=== PATIENT | male | born 1980 | race Caucasian/White ===

== ENCOUNTER 2017-05-30 14:32 | Emergency (ER) | payer BC ==
--- NOTE | 2017-05-30 15:02 | EDM.PDOC ---
ED HPI GENERAL MEDICAL PROBLEM - General Chief Complaint: Genitourinary Problem Stated Complaint: L TESTICAL PAIN Time Seen by Provider: 05/30/17 15:00 Source of Information: Reports: Patient - History of Present Illness INITIAL COMMENTS - FREE TEXT/NARRATIVE: HISTORY AND PHYSICAL: History of present illness: Patient presents with left testicular pain and swelling above the superior pole of the testicle tender on exam swelling of the epididymis no torsion appreciated on clinical exam the exam is somewhat limited due to discomfort but the testicle is not high riding. He denies new sexual partners or recent sexual intercourse denies injury or trauma No fever nausea vomiting chills sweats [] Review of systems: As per history of present illness and below otherwise all systems reviewed and negative. Past medical history: As per history of present illness and as reviewed below otherwise noncontributory. Surgical history: As per history of present illness and as reviewed below otherwise noncontributory. Social history: No reported history of drug or alcohol abuse. Family history: As per history of present illness and as reviewed below otherwise noncontributory. Physical exam: HEENT: Atraumatic, normocephalic, pupils reactive, negative for conjunctival pallor or scleral icterus, mucous membranes moist, throat clear, neck supple, nontender, trachea midline. Lungs: Clear to auscultation, breath sounds equal bilaterally, chest nontender. Heart: S1S2, regular, negative for clicks, rubs, or JVD. Abdomen: Soft, nondistended, nontender. Negative for masses or hepatosplenomegaly. Negative for costovertebral tenderness. Pelvis: Stable nontender. Genitourinary: Swelling of left epididymis and superior pole of left testicle with significant tenderness testicles not high riding no mass scar or lesion of the testicle is appreciated right testicle within normal limits is low with penis no exudate at the meatus otherwise no mass scarred lesion appreciated Rectal: Deferred. Extremities: Atraumatic, negative for cords or calf pain. Neurovascular unremarkable. Neuro: Awake, alert, oriented. Cranial nerves II through XII unremarkable. Cerebellum unremarkable. Motor and sensory unremarkable throughout. Exam nonfocal. Diagnostics: [UA with culture GC Chlamydia Ultrasound scrotum and contents ] Therapeutics: [Rocephin 250 mg IM Azithromycin 1 g by mouth now Cultures to follow Bactrim double strength by mouth twice a day #20 no refill Follow-up with urology in 2 weeks] Impression: [Left epididymitis] Cyst left epididymis noted on ultrasound Definitive disposition and diagnosis as appropriate pending reevaluation and review of above. testicle Pain Score (Numeric/FACES): 4 - Related Data Allergies Allergy/AdvReac Type Severity Reaction Status Date / Time No Known Allergies Allergy Verified 05/30/17 15:11 Home Meds: Home Meds . [No Known Home Meds] 05/30/17 [History] ED ROS GENERAL - Review of Systems Review Of Systems: ROS reveals no pertinent complaints other than HPI. ED EXAM, GENERAL - Physical Exam Exam: See Below Course - Vital Signs Last Recorded V/S: Last Vital Signs Temp 98.9 F 05/30/17 15:01 Pulse 103 H 05/30/17 15:01 Resp 20 05/30/17 15:01 BP 120/78 05/30/17 15:01 Pulse Ox 98 05/30/17 15:01 - Orders/Labs/Meds Orders: Active Orders 24 hr Category Date Time Status CHLAMYDIA AND GONORRHEA BY TMA Stat Lab 05/30/17 15:02 Received CULTURE URINE [RM] Stat Lab 05/30/17 15:02 Received Labs: Laboratory Tests 05/30/17 Range/Units 15:02 Urine Color YELLOW Urine Appearance CLEAR Urine pH 5.5 (5.0-8.0) Ur Specific [place] 1.025 (1.001-1.035) Urine Protein NEGATIVE (NEGATIVE) mg/dL Urine Glucose (UA) NEGATIVE (NEGATIVE) mg/dL Urine Ketones NEGATIVE (NEGATIVE) mg/dL Urine Occult Blood NEGATIVE (NEGATIVE) Urine Nitrite NEGATIVE (NEGATIVE) Urine Bilirubin NEGATIVE (NEGATIVE) Urine Urobilinogen 0.2 (<2.0) EU/dL Ur Leukocyte Esterase TRACE (NEGATIVE) Urine RBC NONE SEEN (0-2/HPF) Urine WBC 2-4 (0-5/HPF) Ur Epithelial Cells RARE (NONE-FEW) Urine Bacteria FEW (NEGATIVE) Urine Mucus LIGHT (NONE-MOD) Meds: Medications Discontinued Medications Generic Name Dose Route Start Last Admin Trade Name Freq PRN Reason Stop Dose Admin Azithromycin 1,000 mg 05/30/17 15:44 05/30/17 16:28 Zithromax PO 05/30/17 15:45 1,000 mg NOW STA Administration Ceftriaxone Sodium 250 mg/ 1 mls @ 1 mls/sec 05/30/17 15:44 05/30/17 16:26 Lidocaine HCl IM 05/30/17 15:45 1 mls/sec ONETIME ONE Administration Departure - Departure Time of Disposition: 16:48 Disposition: Home, Self-Care 01 Condition: Good Clinical Impression: Epididymitis, Epididymal cyst - Discharge Information Referrals: PCP,None [Primary Care Provider] - Forms: ED Department Discharge Additional Instructions: Medication as prescribed Return if symptoms persist or worsen Follow-up with urology in 2 weeks sooner as needed [facility] [address], [address] [place] [address] The following information is given to patients seen in the emergency department who are being discharged to home. This information is to outline your options for follow-up care. We provide all patients seen in our emergency department with a follow-up referral. The need for follow-up, as well as the timing and circumstances, are variable depending upon the specifics of your emergency department visit. If you don't have a primary care physician on staff, we will provide you with a referral. We always advise you to contact your personal physician following an emergency department visit to inform them of the circumstance of the visit and for follow-up with them and/or the need for any referrals to a consulting specialist. The emergency department will also refer you to a specialist when appropriate. This referral assures that you have the opportunity for follow-up care with a specialist. All of these measure are taken in an effort to provide you with optimal care, which includes your follow-up. Under all circumstances we always encourage you to contact your private physician who remains a resource for coordinating your care. When calling for follow-up care, please make the office aware that this follow-up is from your recent emergency room visit. If for any reason you are refused follow-up, please contact the [facility] emergency department at and asked to speak to the emergency department charge nurse. - My Orders Last 24 Hours: My Active Orders 05/30/17 15:02 CHLAMYDIA AND GONORRHEA BY TMA Stat CULTURE URINE [RM] Stat - Assessment/Plan Last 24 Hours: My Active Orders 05/30/17 15:02 CHLAMYDIA AND GONORRHEA BY TMA Stat CULTURE URINE [RM] Stat
[2017-05-30] MEDS ORDERED: cefTRIAXone 250 MG in Lidocaine 1% 1 ML IM ONE (15:44)
[2017-05-30] MEDS ORDERED: Azithromycin 250 MG Tab PO STA (15:44)
--- NOTE | 2017-05-30 16:37 | US ---
EXAMINATION: Scrotal duplex ultrasound HISTORY: Pain COMPARISON: None TECHNIQUE: Grayscale, color Doppler, and spectral Doppler imaging obtained of the scrotum. FINDINGS: Both the left and right testicles are normal in size, contour, and echogenicity demonstrati ng normal color and spectral Doppler flow. No testicular masses identified. No scrotal wall thickenin g. Tiny left epididymal cyst within the region of the palpable abnormality otherwise the epididymides appear normal. No varicoceles or hydroceles. IMPRESSION: Grossly unremarkable scrotal duplex ultrasound.
== END 2017-05-30 17:00 | disposition home or self-care (01) ==
LOC: MW.ED 14:32
DX: N45.1 Epididymitis (principal); N50.3 Cyst of epididymis
CPT/HCPCS: 76870; 81001; 87086; 87491; 87591; 93976; 96372; 99284; A9270; J0696; 99283